=== PATIENT | male | born 1975 | race Caucasian/White ===

== ENCOUNTER 2021-12-28 21:56 | Emergency (ER) | payer OTHER ==
[~2021-12-28] VITALS: Ht 170.2 cm; Wt 81.7 kg
[2021-12-28] MEDS ORDERED: OMEPRAZOLE20 MG PO (22:11)
[2021-12-28] MEDS ORDERED: OLANZAPINE ODT15 MG PO (22:11)
[2021-12-28] MEDS ORDERED: MIRTAZAPINE45 MG PO (22:12)
[2021-12-29] MEDS ORDERED: OXYCODONE HCL5 MG PO (00:28)
[2021-12-29] MEDS ORDERED: ONDANSETRON ODT4 MG PO (00:28)
[2021-12-29] MEDS ORDERED: IBU600 MG PO (00:28)
[2021-12-29] MEDS ORDERED: TYLENOL EXTRA500 MG PO (00:28)
[2021-12-29] MEDS ORDERED: AMOX TR-K CLV1 EAC1 PO (00:28)
== END 2021-12-29 00:47 | disposition home or self-care (01) ==
LOC: ED 21:56
DX: S02.842A Fracture of lateral orbital wall, left side, initial encounter for closed fracture (principal); S02.40FA Zygomatic fracture, left side, initial encounter for closed fracture; S02.32XA Fracture of orbital floor, left side, initial encounter for closed fracture; S02.40DA Maxillary fracture, left side, initial encounter for closed fracture; I10 Essential (primary) hypertension; Z79.899 Other long term (current) drug therapy; Y04.0XXA Assault by unarmed brawl or fight, initial encounter
CPT/HCPCS: 70450; 70486; 99283-25; A9270

== ENCOUNTER 2022-02-06 13:00 | Emergency (ER) | payer OTHER ==
[~2022-02-06] VITALS: Ht 170.2 cm; Wt 81.7 kg
[~2022-02-06 13:00] MED LIST: AMOX TR-K CLV1 EAC1 PO; IBU600 MG PO; MIRTAZAPINE45 MG PO; OLANZAPINE ODT15 MG PO; OMEPRAZOLE20 MG PO; ONDANSETRON ODT4 MG PO; OXYCODONE HCL5 MG PO; TYLENOL EXTRA500 MG PO
[2022-02-06] MEDS ORDERED: GEODON40 MG PO (13:37)
[2022-02-06] MEDS ORDERED: FLOMAX0.4 MG PO (17:29)
[2022-02-06] MEDS ORDERED: HYDROCODON-ACE1 EA10 PO (17:29)
== END 2022-02-06 18:05 | disposition home or self-care (01) ==
LOC: ED 13:00
DX: N13.2 Hydronephrosis with renal and ureteral calculous obstruction (principal); I10 Essential (primary) hypertension; Z88.8 Allergy status to other drugs, medicaments and biological substances; Z79.899 Other long term (current) drug therapy
CPT/HCPCS: 36415; 74176; 80053; 81001; 83690; 85025; 96374; 96375; 99284-25; J1170; J1885; J7030